=== PATIENT | male | born 1985 | race Hispanic/Latino ===

== ENCOUNTER 2016-11-03 13:41 | Emergency (ER) | payer SELFPAY ==
[2016-11-03 14:05] VITALS: BP 116/72
[2016-11-03] MEDS ORDERED: VALIUM IM ONE (16:23)
[2016-11-03] MEDS ORDERED: TORADOL IM ONE (16:23)
--- NOTE | 2016-11-03 17:18 | Emergency Department Report ---
Entered by BRIGID MARCELO, acting as scribe for EUSEBIO BARBOSA NP. ED Back Pain/Injury HPI - General Chief Complaint: Back Pain/Injury Stated Complaint: LOWER BACK PAIN Time Seen by Provider: 11/03/16 16:08 Source: patient Limitations: No Limitations - History of Present Illness Initial Comments: Patient is a 31 y.o. male who presents to ED for evaluation of four day hx of acute on chronic, constant back pain that radiates across his back and down his bilateral lower extremities. He describes his burning pain as "like someone is trying to cut my spine out with a blowtorch." He denies known injury or trauma in the past week, but states that the pain worsened while he was working outside 1.5 weeks ago. Patient states that his pain is constant, but worse when he bends his upper body or coughs/sneezes. Patient denies aggravation of his pain with extension or flexion of his lower extremities. He denies having taken any mediation prior to his ED visit today for his pain, stating that he does not like medication. Patient does not report chest pain or SOB. He denies bowel incontinence or bladder incontinence. He reports a PMHx of "pinched spinal cord" several years ago that was caused when he picked up a transmission. At that time, his physician advised him to have surgery, but he walked out of the office when he heard that there would be a 1.5 year recovery. MD Complaint: back pain -: Gradual, week(s) (1.5 weeks of worsening back pain) Similar Symptoms Previously: Yes (for years ) Radiation: buttocks, left leg, right leg Quality: burning, other ("like someone is trying to cut [his] spine out with a blowtorch.") Consistency: constant Improves With: none Worsens With: movement, deep breaths/cough, other (bending over) Context: other (He reports a PMHx of "pinched spinal cord" several years ago that was caused when he picked up a transmission. Pain worsened 1.5 weeks ago after working outside ) Associated Symptoms: other (He denies N/V, bowel incontinence, or bladder incontinence.). denies: difficulty walking, difficulty urinating, incontinence , abdominal pain Treatments Prior to Arrival: other (none.) - Related Data Previous Rx's Medication Instructions Recorded Last Taken Type methOCARBAMOL [Robaxin TAB] 500 mg PO Q6H PRN #15 tablet 11/03/16 Unknown Rx methylPREDNISolone [Medrol] 4 mg PO DAILY #1 tab.ds.pk 11/03/16 Unknown Rx Allergies Allergy/AdvReac Type Severity Reaction Status Date / Time Penicillins Allergy Unknown Verified 11/03/16 13:56 tramadol AdvReac Vomiting Verified 11/03/16 13:56 ED Review of Systems Comment: All other systems reviewed and negative Constitutional: denies: chills, diaphoresis, fever, malaise ENT: denies: ear pain, throat pain Respiratory: denies: cough, shortness of breath, wheezing Cardiovascular: denies: chest pain, palpitations, edema, syncope Gastrointestinal: other (Negative for bowel incontinence). denies: abdominal pain, diarrhea, melena Genitourinary: other (Negative for bladder incontinence). denies: urgency, dysuria, frequency, hematuria, discharge, testicular pain, testicular mass Musculoskeletal: back pain (radiates down his bilateral lower extremities). denies: joint swelling Skin: denies: rash, lesions, change in color, change in hair/nails, pruritus Neurological: numbness. denies: confusion, abnormal gait, vertigo Psychiatric: denies: anxiety, depression ED Past Medical Hx - Past Medical History Additional medical history: CHRONIC PAIN - Surgical History Additional Surgical History: "ANTONELLA IN RIGHT LEG" - Social History Smoking Status: Current Every Day Smoker Substance Use Type: Alcohol - Medications Home Medications: Home Medications Medication Instructions Recorded Confirmed Last Taken Type methOCARBAMOL [Robaxin TAB] 500 mg PO Q6H PRN #15 tablet 11/03/16 Unknown Rx methylPREDNISolone [Medrol] 4 mg PO DAILY #1 tab.ds.pk 11/03/16 Unknown Rx ED Physical Exam - General Limitations: No Limitations General appearance: alert, in no apparent distress - Head Head exam: Present: atraumatic, normocephalic, normal inspection - Eye Eye exam: Present: normal appearance, PERRL, EOMI. Absent: scleral icterus, conjunctival injection Pupils: Present: normal accommodation - ENT ENT exam: Present: normal exam, normal orophraynx, mucous membranes moist, normal external ear exam, other (Nose: Normal external appearance, no drainage) - Neck Neck exam: Present: normal inspection, full ROM. Absent: tenderness, meningismus, lymphadenopathy, thyromegaly - Respiratory Respiratory exam: Present: normal lung sounds bilaterally, other (CTAB. Normal work of breathing. ). Absent: respiratory distress, wheezes, rales, rhonchi, accessory muscle use - Cardiovascular Cardiovascular Exam: Present: regular rate, normal rhythm - GI/Abdominal GI/Abdominal exam: Present: soft. Absent: distended, tenderness, guarding, rebound, rigid, pulsatile mass - Rectal Rectal exam: Present: deferred - Extremities Exam Extremities exam: Present: normal inspection, full ROM, normal capillary refill. Absent: tenderness, pedal edema, joint swelling - Back Exam Back exam: Present: normal inspection, full ROM. Absent: tenderness, CVA tenderness (R), CVA tenderness (L), muscle spasm, paraspinal tenderness, vertebral tenderness, rash noted - Expanded Back Exam Expanded Back exam: Absent: saddle anesthesia Back exam: Negative Straight Leg Raising: Left, Right - Neurological Exam Neurological exam: Present: alert, oriented X3 - Psychiatric Psychiatric exam: Present: normal affect, normal mood - Skin Skin exam: Present: warm, dry, intact, normal color. Absent: rash, cyanosis, diaphoretic, erythema, pallor, abrasion, ecchymosis ED Course Vital Signs 11/03/16 14:01 Temperature 98.2 F Pulse Rate 87 Respiratory 17 Rate Blood Pressure 116/72 O2 Sat by Pulse 100 Oximetry - Reevaluation(s) Reevaluation #1: 11/03/16 17:17 PT aware that with his history and complaints, he will need to follow up with Neurosurgeon. PT states he has has had XRs of his back and a MRI previously. PT aware that with the gradual worsening of pain, he may need to have his MRI repeated on an outpt basis. PT verbalizes understanding. Reevaluation #2: 11/03/16 17:25 PT aware of pending dispo. PT has no questions at this time. - Pulse Oximetry Interpretation Digit-Finger Initial Pulse Oximetry Readin Actions Taken: none ED Medical Decision Making - Differential Diagnosis ddd, sciatcia Critical Care Time: No ED Disposition Clinical Impression: Acute exacerbation of chronic low back pain Sciatica Qualifiers: Laterality: bilateral Qualified Code(s): M54.31 - Sciatica, right side; M54.32 - Sciatica, left side Disposition: DC-01 TO HOME OR SELFCARE Is pt being admited?: No Does the pt Need Aspirin: No Condition: Stable Instructions: Sciatica (ED), Low Back Strain (ED), Acute Low Back Pain (ED), Lumbar Radiculopathy (ED), Chronic Back Pain (ED) Additional Instructions: No driving or Alcohol after taking Robaxin Follow up with PCP or Neurosurgeon in the next 3-5 days Prescriptions: methOCARBAMOL [Robaxin TAB] 500 mg PO Q6H PRN #15 tablet PRN Reason: Muscle Spasm methylPREDNISolone [Medrol] 4 mg PO DAILY #1 tab.ds.pk Referrals: PRIMARY CARE,MD [Primary Care Provider] - 3-5 Days TJ RUBIO MD [Staff Physician] - 3-5 Days DORITA SANCHEZ MD [Staff Physician] - 3-5 Days Time of Disposition: 17:16 This documentation as recorded by the FOZIA marroquin KELLY,accurately reflects the service I personally performed and the decisions made by CHELSEY abraham TRACY M , AMRIK.
== END 2016-11-03 17:38 | disposition home or self-care (01) ==
LOC: ED 13:41
DX: M54.32 Sciatica, left side (principal); G89.29 Other chronic pain; F17.200 Nicotine dependence, unspecified, uncomplicated; Z88.0 Allergy status to penicillin; Z88.8 Allergy status to other drugs, medicaments and biological substances
CPT/HCPCS: 96372; 99282; J1885; J2930; J3360